=== PATIENT | female | born 1995 | race Two or more races ===

== ENCOUNTER 2021-08-05 16:16 | Emergency (ER) | payer OTHER ==
[~2021-08-05] VITALS: Ht 157.5 cm; Wt 93.9 kg
[2021-08-05] MEDS ORDERED: CALAMINE LOTIO177 M1 TOP (17:35)
== END 2021-08-05 18:08 | disposition home or self-care (01) ==
LOC: ER 16:16
DX: R21 Rash and other nonspecific skin eruption (principal); S20.372A Other superficial bite of left front wall of thorax, initial encounter; S20.172A Other superficial bite of breast, left breast, initial encounter; W56.81XA Bitten by other nonvenomous marine animals, initial encounter; Y93.89 Activity, other specified; Y92.832 Beach as the place of occurrence of the external cause; Y99.8 Other external cause status